=== PATIENT | female | born 2000 | race Hispanic/Latino ===

== ENCOUNTER 2024-05-23 12:16 | Emergency (ER) | payer OTHER ==
[~2024-05-23] VITALS: Ht 160 cm; Wt 76.7 kg
[2024-05-23 12:56] VITALS: PULSE 89; RESP 16; TEMP 98.5
[2024-05-23] MEDS: FAMOTIDINE 20 MG/2 ML VIAL IV STA (14:13)
[2024-05-23] MEDS: SODIUM CHLORIDE 0.9% 1000ML 1,000 ML IV STA (14:14)
[2024-05-23] MEDS: ONDANSETRON HCL INJ 2MG/ML 2ML 2 MG/ML VIAL IV STA (14:14)
[2024-05-23] MEDS: KETOROLAC TROMETHAMINE 30 MG/ML VIAL IV STA (14:14)
[2024-05-23] MEDS ORDERED: IOPAMIDOL 370 MG/ML 100 ML INFUS..BTL INJ ONE (14:54)
[2024-05-23] MEDS ORDERED: CEFUROXIME500 MG PO (17:10)
[2024-05-23] MEDS ORDERED: ONDANSETRON ODT4 MG PO (17:11)
[2024-05-23 17:30] VITALS: BP 102/57; PULSE 73; RESP 16; TEMP 98.6; O2SAT 100
== END 2024-05-23 17:30 | disposition home or self-care (01) ==
LOC: FSED 12:45
DX: R50.9 Fever, unspecified (principal); N12 Tubulo-interstitial nephritis, not specified as acute or chronic; R10.12 Left upper quadrant pain; D72.829 Elevated white blood cell count, unspecified; Z11.52 Encounter for screening for COVID-19
CPT/HCPCS: 0223U; 74177; 80053; 81003; 81025; 85025; 87400; 99284; J0696; J1885; J2405; J7030; Q9967